=== PATIENT | female | born 1945 | race Caucasian/White ===

== ENCOUNTER 2018-05-08 23:44 | Emergency (ER) | payer OTHER, MEDICAID ==
[~2018-05-08] VITALS: Ht 160 cm; Wt 62.8 kg
[~2018-05-08 23:44] MED LIST: BISA-57 PO; CIPR500T4 PO; METO10TA92 PO; METR500T PO; POLY17PO6 PO
[2018-05-08 23:47] VITALS: Ht 160 cm; Wt 62.8 kg
--- NOTE | 2018-05-09 04:27 | ERD ---
ER Documentation Chief Complaint Chief Complaint scanty blood stained stool today;hx diverticulosis HPI Patient is a 72-year-old female with hypertension who presents with rectal bleeding. The patient said that she went to the bathroom and coughed hard yesterday and then started having rectal bleeding. She said it was bright red. She thought it was hemorrhoids. It went away but then came back again today so she came to the emergency department. She has not on blood thinning medications. She said that she has never had a colonoscopy. She has elevated blood pressure but said that she is trying to take garlic to control the blood pressure. Upon review of old medical records this is the patient's eighth visit to the ER since 2007. She does not remember the name of her primary doctor. ROS All systems reviewed and are negative except as per history of present illness. Medications Home Meds Active Scripts Bisacodyl* (Dulcolax*) 5 Mg Tablet.dr, 10 MG PO DAILY PRN for CONSTIPATION, #30 TAB Prov:DEMETRIO SALVADOR MD 10/01/15 Polyethylene Glycol* (Miralax*) 17 Gm Powd.pack, 17 GM PO BID PRN for constipation, #60 PACKET Prov:DEMETRIO SALVADOR MD 10/01/15 Metoclopramide* (Reglan*) 10 Mg Tablet, 10 MG PO Q6H PRN for NAUSEA AND OR VOMITING, #30 TAB Prov:DEMETRIO SALVADOR MD 10/01/15 Metronidazole* (Flagyl*) 500 Mg Tablet, 500 MG PO TID for acute diverticulitis with micr, #60 TAB Prov:DEMETRIO SALVADOR MD 10/01/15 Ciprofloxacin Hcl* (Ciprofloxacin Hcl*) 500 Mg Tablet, 500 MG PO BID for acute diverticulitis with micr, #40 TAB Prov:DEMETRIO SALVADOR MD 10/01/15 Allergies Allergies: Coded Allergies: codeine (Verified Allergy, Mild, 08/06/15) Uncoded Allergies: [id number] (SULFA (SULFONAMIDE ANTIBIOTICS)) (Allergy, Mild, 10/26/10) SULFA (Allergy, Unknown, 08/06/15) PMhx/Soc History of Surgery: Yes (RIGHT KIDNEY REMOVED; HERNIA SURGERY;CAESARIAN SECTION; R RYAN FX) Anesthesia Reaction: No Hx Neurological Disorder: No Hx Respiratory Disorders: Yes (astma) Hx Cardiac Disorders: Yes Hx Psychiatric Problems: Yes (ANXIETY) Hx Miscellaneous Medical Probl: No Hx Alcohol Use: No Hx Substance Use: No Hx Tobacco Use: No FmHx Family History: diabetes Physical Exam Vitals Vital Signs Date Temp Pulse Resp B/P (MAP) Pulse Ox O2 O2 Flow FiO2 Time Delivery Rate 05/08/18 98.4 101 22 219/108 98 23:47 (145) Physical Exam Const: No acute distress Head: Atraumatic Eyes: Normal Conjunctiva ENT: Normal External Ears, Nose and Mouth. Neck: Full range of motion. No meningismus. Resp: Clear to auscultation bilaterally Cardio: Regular rate and rhythm, no murmurs Abd: Soft, non tender, non distended. Normal bowel sounds Skin: No petechiae or rashes Back: No midline or flank tenderness Ext: No cyanosis, or edema Neur: Awake and alert Psych: Normal Mood and Affect Result Diagram: 05/09/18 0303 05/09/18 0302 Results 24 hrs Laboratory Tests Test 05/09/18 03:02 05/09/18 03:03 Prothrombin Time 12.4 Sec Prothrombin Time Ratio 1.0 INR International Normalized Ratio 0.91 Activated Partial Thromboplast Time 29.6 Sec Sodium Level 145 mmol/L Potassium Level 4.5 mmol/L Chloride Level 112 mmol/L Carbon Dioxide Level 18 mmol/L Anion Gap 15 Blood Urea Nitrogen 33 mg/dl Creatinine 3.91 mg/dl Est Glomerular Filtrat Rate mL/min mL/min Glucose Level 157 mg/dl Calcium Level 9.1 mg/dl Total Bilirubin 0.0 mg/dl Direct Bilirubin 0.00 mg/dl Indirect Bilirubin 0.0 mg/dl Aspartate Amino Transf (AST/SGOT) 18 IU/L Alanine Aminotransferase (ALT/SGPT) 18 IU/L Alkaline Phosphatase 90 IU/L Troponin I < 0.012 ng/ml Total Protein 7.5 g/dl Albumin 4.0 g/dl Globulin 3.50 g/dl Albumin/Globulin Ratio 1.14 White Blood Count 5.3 10^3/ul Red Blood Count 3.79 10^6/ul Hemoglobin 11.3 g/dl Hematocrit 35.6 % Mean Corpuscular Volume 93.9 fl Mean Corpuscular Hemoglobin 29.8 pg Mean Corpuscular Hemoglobin Concent 31.7 g/dl Red Cell Distribution Width 12.3 % Platelet Count 225 10^3/UL Mean Platelet Volume 10.1 fl Immature Granulocytes % 0.200 % Neutrophils % 58.0 % Lymphocytes % 31.9 % Monocytes % 6.3 % Eosinophils % 2.5 % Basophils % 1.1 % Nucleated Red Blood Cells % 0.0 /100WBC Immature Granulocytes # 0.010 10^3/ul Neutrophils # 3.1 10^3/ul Lymphocytes # 1.7 10^3/ul Monocytes # 0.3 10^3/ul Eosinophils # 0.1 10^3/ul Basophils # 0.1 10^3/ul Nucleated Red Blood Cells # 0.0 10^3/ul Current Medications Medications Dose Sig/E[place] Start Time Status Last (Trade) Ordered Route PRN Stop Time Admin Dose Reason Admin 650 mg ONCE ONCE 05/09/18 Acetaminophen PO 04:30 05/09/18 (Tylenol 04:31 Tab) Procedures/MDM EKG read by me: Rate/Rhythm: Regular rate and rhythm at a normal rate Intervals: Normal Impression: No evidence of ischemia or arrhythmia Patient is a 72-year-old female with hypertension who presents with rectal bleeding. The patient has a hemoglobin of 11 and does not require transfusion at this time. She is not on blood thinning medications. She is otherwise well- appearing. She has elevated blood pressure and I told her she will need to follow-up closely with her primary doctor for repeat blood pressure check and will likely need to be started on blood pressure medications but this can be done by her primary doctor. I do not believe the patient requires further workup or admission to the hospital at this time. I do believe she would benefit from outpatient colonoscopy within the next week that can be scheduled by her primary doctor. She can return for any worsening symptoms. She was provided with copies of her laboratory studies prior to discharge. Departure Diagnosis: Primary Impression: HTN (hypertension) Hypertension type: essential hypertension Qualified Codes: I10 - Essential (primary) hypertension Additional Impressions: Anemia Anemia type: unspecified type Qualified Codes: D64.9 - Anemia, unspecified Rectal bleed Condition: Fair Patient Instructions: Anemia, Rectal Bleed, Stable Referrals: Your doctor Additional Instructions: Call your primary care doctor TOMORROW for an appointment during the next 1-2 days.See the doctor sooner or return here if your condition worsens before your appointment time. ASHLEY MAXWELL MD May 09, 2018 04:27
[2018-05-09] MEDS ORDERED: ACETAMINOPHEN 325 MG TAB PO ONE (04:30)
[2018-05-09 04:42] VITALS: BP 154/72; PULSE 96; RESP 15
== END 2018-05-09 04:42 | disposition home or self-care (01) ==
LOC: E/R 23:44
DX: I10 Essential (primary) hypertension (principal); D64.9 Anemia, unspecified; J45.909 Unspecified asthma, uncomplicated
CPT/HCPCS: 36415; 80053; 84484; 85025; 85610; 85730; 86850; 86900; 86901; 93005